=== PATIENT | female | born 1995 | race Caucasian/White ===

== ENCOUNTER 2017-07-17 20:12 | Emergency (ER) | payer SELFPAY ==
[2017-07-17 20:17] VITALS: O2SAT 98
--- NOTE | 2017-07-17 20:34 | C.PDOC ---
History Of Present Illness Tia Atkins is a 21 year old female, with no significant past medical history, who presents to the emergency department complaining of urinary frequency, urgency, dysuria and intermittent hematuria onset for x3 days. She denies any fever, chills, vomiting, back pain, abdominal pain or vaginal discharge. No further medical complaints. PMD: None provided. Time Seen by Provider: 07/17/17 20:17 Chief Complaint (Nursing): Female Genitourinary History Per: Patient History/Exam Limitations: no limitations Onset/Duration Of Symptoms: Days (x3) Current Symptoms Are (Timing): Still Present Associated Symptoms: Urinary Symptoms (frequency, urgency, dsuria, and intermittent hematuria). denies: Fever, Chills, Vomiting, Back Pain Past Medical History Reviewed: Historical Data, Nursing Documentation, Vital Signs Vital Signs: Last Vital Signs Temp 97.6 F 07/17/17 20:13 Pulse 77 07/17/17 20:13 Resp 20 07/17/17 20:13 BP 110/65 07/17/17 20:13 Pulse Ox 98 07/17/17 21:13 - Medical History PMH: No Chronic Diseases Surgical History: No Surg Hx Family History: States: Unknown Family Hx - Social History Hx Tobacco Use: No Hx Alcohol Use: No Hx Substance Use: No Review Of Systems Constitutional: Negative for: Fever, Chills Gastrointestinal: Negative for: Vomiting, Abdominal Pain Genitourinary: Positive for: Dysuria, Frequency, Hematuria (intermittent). Negative for: Vaginal Discharge Musculoskeletal: Negative for: Back Pain Physical Exam - Physical Exam Appears: No Acute Distress Skin: Normal Color, Warm, Dry Head: Atraumatic, Normacephalic Eye(s): bilateral: Normal Inspection, PERRL, EOMI Neck: Normal ROM Gastrointestinal/Abdominal: Normal Exam, Soft, No Tenderness, No Guarding, No Rebound Back: Normal Inspection, No CVA Tenderness Extremity: Normal ROM Neurological/Psych: Oriented x3 Gait: Steady ED Course And Treatment O2 Sat by Pulse Oximetry: 98 (RA) Pulse Ox Interpretation: Normal Progress Note: Initial Impression: UTI. Initial Plan: HCG Qualitative urine, Urinalysis, pyridium. Urine cx sent- Pt will be treated based on sx and will follow up in clinic. Return precautions discussed Disposition Counseled Patient/Family Regarding: Diagnosis, Need For Followup, Rx Given - Disposition Referrals: [facility] [Outside] Disposition: HOME/ ROUTINE Disposition Time: 21:09 Condition: STABLE Additional Instructions: Increase PO fluids Take meds as directed Return to ER if worse Prescriptions: Nitrofurantoin Macrocrystals [Macrobid] 1 cap PO BID #14 cap Phenazopyridine HCl [Pyridium] 100 mg PO TID #6 tab Instructions: Urinary Tract Infection, Adult (DC) Forms: [employer] (Slovak) - Clinical Impression Clinical Impression: Urinary tract infection - Scribe Statement The provider has reviewed the documentation as recorded by the Scribe Edgar Flores All medical record entries made by the Scribe were at my direction and personally dictated by me. I have reviewed the chart and agree that the record accurately reflects my personal performance of the history, physical exam, medical decision making, and the department course for this patient. I have also personally directed, reviewed, and agree with the discharge instructions and disposition.
[2017-07-17 20:40] LABS: SQUAMOUS EPITHIAL < 1 /hpf (0-5); URINE BILIRUBIN NEGATIVE (NEGATIVE); URINE BLOOD 1+ (NEGATIVE); URINE CLARITY Clear (Clear); URINE COLOR Colorless (YELLOW); URINE GLUCOSE (UA) NORMAL (Normal); URINE LEUKOCYTE ESTERASE TRACE Leu/uL (Negative); URINE PROTEIN NEGATIVE (NEGATIVE); URINE UROBILINOGEN NORMAL mg/dL (0.2-1.0)
[2017-07-17 20:41] LABS: HCG,QUALITATIVE URINE NEGATIVE (NEGATIVE)
[2017-07-17 21:39] VITALS: BP 110/60; PULSE 70; RESP 14; TEMP 97.5
== END 2017-07-17 21:38 | disposition home or self-care (01) ==
LOC: C.ER 20:12
DX: N39.0 Urinary tract infection, site not specified (principal)